=== PATIENT | male | born 1960 | race Caucasian/White ===

== ENCOUNTER → 2017-05-22 | Outpatient (CLI) | payer BC ==
[2014-03-09 05:56] VITALS: BP 145/87
[~2017-05-22] MED LIST: CYCL10TA2 PO; HYDR-2678 PO; HYDR-965 PO; IBUP200C PO; PROVENTIL HFA6.7 GM IH
--- NOTE | 2017-05-22 09:20 | KCIC ---
MRI Brain without contrast History: Left arm weakness in recent weeks Technique: Multiplanar, multisequential noncontrast MR imaging was performed of the brain. Contrast: None Comparison: None Findings: There is no evidence of an acute infarct or cytotoxic edema. The ventricles, sulci, and cisterns are within normal limits in size and configuration. There is no significant midline shift, mass effect, or focal abnormal extra-axial fluid collection. There is a tiny 4 mm focus of T2 and FLAIR hyperintense signal of the right frontal peripheral deep white matter, otherwise no significant focal signal abnormality including hemosiderin deposition of the brain parenchyma. There is preservation of the major intracranial flow-voids at the skull base. The mastoid air cells are aerated. The cerebellar tonsils are normal in location. There is no significant abnormality of the pineal gland or pituitary gland. There is patchy mild bilateral ethmoid air cell and very minimal frontal sinus mucosal thickening. There is right maxillary sinus mucous retention cyst 1.5 cm. There is preserved marrow signal of the clivus. Impression: 1. There is no evidence of recent infarct or intracranial mass effect. Other than a tiny focus of likely nonspecific gliosis right frontal white matter, there is no significant intracranial abnormality. Electronically signed by: Ken Cortes MD (05/22/2017 9:16 AM) [id number]
--- NOTE | 2017-05-22 11:23 | KCIC ---
SHOULDER 2+V LEFT History: Tendinitis of left rotator cuff Comparison: None. Findings: 3 views of the left shoulder submitted. There is no acute fracture or dislocation. There apparently is a small margin of calcification of the superior lateral margin of the glenoid. Impression: 1. No acute osseous abnormality is identified. Electronically signed by: Ken Cortes MD (05/22/2017 11:20 AM) [email or web address]
== END | disposition home or self-care (01) ==
LOC: KCIC 08:06
PROVIDERS: ATTEND Family Medicine
DX: M75.32 Calcific tendinitis of left shoulder (principal)
CPT/HCPCS: 70551; 73030

== ENCOUNTER → 2018-09-08 | Outpatient (CLI) | payer OTHER ==
[2014-03-09 05:56] VITALS: BP 145/87
[~2018-09-08] MED LIST changes: +ALBU2.5V8 IH; +HYDR-3165 PO; -HYDR-965 PO; -PROVENTIL HFA6.7 GM IH
--- NOTE | 2018-09-08 17:01 | KCIC ---
MR of the left shoulder Indication: Left shoulder pain, possible rotator cuff tear, pain for 14 months.. Comparison: None are available. Technique: Standard multiplanar sequences are obtained. Findings: Artifact: Mild motion degradation. Acromioclavicular joint: Mildly degenerative with mild undersurface mass effect. Rotator cuff: * Supraspinatus-infraspinatus tendon: Partial-thickness undersurface tear of the supraspinatus tendon, 30-50% deep. There is also a small bursal surface defect of the supraspinatus tendon. No full-thickness rupture or retraction. * Subscapularis tendon: Tendinosis with partial tear * Muscle bulk: Within normal limits * Subacromial subdeltoid bursa: Trace effusion. Fluid: Trace glenohumeral effusion. Glenohumeral cartilage: No acute defect or advanced DJD. Labrum: Mild superior labral signal. No definite attachment but detection could be limited by motion. Biceps tendon: Tendinosis with mild thickening and signal. Bones: No lesion or acute fracture. Soft tissue: No acute findings.. Impression: 1 Partial tearing of the supraspinatus tendon, and to a lesser extent subscapularis tendon. No full-thickness rupture or retraction. 2. Biceps tendinosis. Electronically signed by: Tien Berg MD (09/08/2018 4:57 PM) [email or web address]
--- NOTE | 2018-09-08 17:07 | KCIC ---
MR of the right shoulder Indication: Right shoulder pain for 14 months.. Comparison: None are available. Technique: Standard multiplanar sequences are obtained. Findings: Artifact: No significant image degradation. Acromioclavicular joint: Mildly degenerative. Mild undersurface mass effect. Rotator cuff: * Supraspinatus-infraspinatus tendon: Linear full-thickness tear across the supraspinatus tendon footplate attachment, measures about 15 mm AP diameter. No significant retraction. More generalized tendinosis. * Subscapularis tendon: Tendinosis with mild partial tear. * Muscle bulk: No advanced atrophy. * Subacromial subdeltoid bursa: Trace effusion. Fluid: No significant glenohumeral effusion. Glenohumeral cartilage: No acute defect or advanced DJD. Labrum: Mild signal within the superior labrum, compatible with degeneration or small degenerative tear. Biceps tendon: Tendinosis, with thickening and hyperintense signal. Bones: No lesion or acute fracture. Soft tissue: No acute findings.. Impression: 1. Rotator cuff tendinosis, small nonretracted full-thickness tear of the supraspinatus tendon attachment, mild partial subscapularis tendon tear. 2. Superior labral degeneration versus mild degenerative tear. 3. Biceps tendinosis. Electronically signed by: Tien Berg MD (09/08/2018 5:02 PM) [email or web address]
== END | disposition home or self-care (01) ==
LOC: KCIC MRI 14:23
PROVIDERS: ATTEND Orthopaedic Surgery Sports Medicine
DX: M75.121 Complete rotator cuff tear or rupture of right shoulder, not specified as traumatic (principal); M75.112 Incomplete rotator cuff tear or rupture of left shoulder, not specified as traumatic; M19.012 Primary osteoarthritis, left shoulder; M19.011 Primary osteoarthritis, right shoulder
CPT/HCPCS: 73221

== ENCOUNTER 2018-10-29 06:10 | Day surgery (SDC) | payer OTHER ==
[~2018-10-29] VITALS: Ht 177.8 cm; Wt 88.0 kg
[~2018-10-29 06:10] MED LIST changes: +IBUP200T44 PO; +LOSA-73 PO
[2018-10-29] MEDS ORDERED: IV RINGERS,LACTATED 1000ML 1,000 ML IV SCH (07:00)
[2018-10-29] MEDS ORDERED: ONDANSETRON PF 4 MG/2 ML VIAL. IV PRN (07:00)
[2018-10-29] MEDS ORDERED: MORPHINE SULFATE 4 MG/ML VIAL. IV PRN (07:00)
[2018-10-29] MEDS ORDERED: LIDOCAINE 1% PF 2 ML VIAL. ID PRN (07:00)
[2018-10-29] MEDS ORDERED: PROCHLORPERAZINE 10 MG/2 ML VIAL. IV PRN (07:00)
[2018-10-29] MEDS ORDERED: HYDROmorphone 2 MG/ML VIAL IV PRN (07:00)
[2018-10-29] MEDS ORDERED: fentaNYL PF VIAL 100 MCG/2 ML VIAL IV PRN (07:00)
[2018-10-29] MEDS ORDERED: MIDAZOLAM HCL/PF 2 MG/2 ML VIAL. ONE (07:05)
[2018-10-29] MEDS ORDERED: ROPIVacaine 0.5% PF 20 ML VIAL. ONE (07:05)
[2018-10-29] MEDS ORDERED: LIDOCAINE 2% PF 2ML VIAL. ONE (07:08)
[2018-10-29] MEDS ORDERED: LIDOCAINE 1% 20 ML VIAL. ONE (07:10)
[2018-10-29] MEDS ORDERED: EPINEPHrine VIAL 30 MG/30 ML VIAL ONE (07:10)
[2018-10-29] MEDS ORDERED: BUPIVACAINE MPF 0.5% 30 ML VIAL. ONE (07:10)
[2018-10-29] MEDS ORDERED: DEXAMETHASONE SOD PHOS 20 MG/5 ML VIAL. ONE (07:20)
[2018-10-29] MEDS ORDERED: PHENYLEPHRINE 10 MG/ML VIAL. ONE (07:20)
[2018-10-29] MEDS ORDERED: LIDOCAINE 2% PF Vial for OR 5 ML VIAL. ONE (07:20)
[2018-10-29] MEDS ORDERED: SEVOFLURANE > 120 MINUTES. IH ONE (07:20)
[2018-10-29] MEDS ORDERED: ONDANSETRON PF 4 MG/2 ML VIAL. ONE (07:20)
[2018-10-29] MEDS ORDERED: PROPOFOL 20 ML IV ONE (07:20)
--- NOTE | 2018-10-29 07:43 | DISCH ---
DISCHARGE INSTRUCTIONS Condition on Discharge Condition on Discharge: Stable Activity After Discharge Activity Instructions for Disc: Avoid exertion, Bedrest today, Progressive ambulation, Walk in house, Other, see below Other activity instructions: arm to remain in sling Bathing Instructions: Shower-keep dressing dry, No Tub Bath until see Lifting Instructions after Dis: No heavy lifting, No pulling or pushing, Do not lift >10 pounds Exercise Instruction after Dis: Walk 10 min, 3 x per day, Walk 15 min, 3 x per day, Walk 30 min, 3 x per week Driving Instructions after Dis: Do not drive Weight Bearing Status after Di: Non weight bearing Diet after Discharge Diet after Discharge: Regular Diet Texture: Regular Wound Incision Care Wound/Incision Care: Ice to area for comfort, Keep wound/cast CDI, Change dressing Wound Care Equipment: Dressings Contacting the [facility] after DC Call your doctor for: Concerns you may have Follow-Up Follow up with: David in 2 wks HECTOR PARRA II, MD Oct 29, 2018 07:43
[2018-10-29] MEDS ORDERED: KETOROLAC 30 MG/ML INJ FOR OR. INJ ONE (07:58)
[2018-10-29] MEDS ORDERED: fentaNYL PF VIAL 250 MCG/5 ML VIAL ONE (08:33)
[2018-10-29] MEDS ORDERED: MORPHINE SULFATE 4 MG/ML VIAL. ONE (09:03)
[2018-10-29] MEDS ORDERED: fentaNYL PF VIAL 100 MCG/2 ML VIAL ONE (09:03)
[2018-10-29] MEDS: fentaNYL PF VIAL 100 MCG/2 ML VIAL IV PRN ×2 (09:05→09:10)
--- NOTE | 2018-10-29 09:10 | PDOC4 ---
Operative Note Operative Note Date of procedure: 10/29/2018 Surgeon: Ivan Parra Tactical/Mobile Watch Officer: Kailyn rGove, certified registered dental assistant Preoperative diagnosis: Right shoulder rotator cuff tear Postoperative diagnosis: Same Procedure performed: arthroscopic right shoulder rotator cuff repair Anesthesia: Gen. plus regional nerve block Findings: #1 near complete rotator cuff tear involving supraspinatus and leading edge of the infraspinatus #2 remainder rotator cuff intact #3 grade 2-3 changes at glenoid and normal appearinghumeral head #4 superior labral degenerative fraying #5 remainder of the labrum intact #6 no loose bodies Blood loss: 10mL Components inserted: [employer] helacoil 2 for rotator cuff repair Reason for procedure: Patient is a very pleasant and gentleman who has had chronic shoulder pain 4 years. Clinical and radiographic examination, including MRI, were consistent with the preoperative diagnosis. He has tried physical therapy for several months as well as injections which only afforded him temporary relief. Because of his symptoms and dysfunction, we had a discussion of the risks, benefits, alternatives the above surgery and he wished to proceed. Description of procedure: Patient was greeted in the preoperative holding area where the correct extremity was verified and marked. They were taken to the preoperative holding area where the anesthesiology team placed a regional nerve block. The patient was then taken back to the operative suite and antibiotics were started as they were brought back. Once in the operative room, the patient was transferred gently supine to the operating room table after successful induction of a general anesthetic. After this, he was sat up in a beachchair position maintaining his C-spine in neutral position, large pad under his legs, he was secured to the bed. We then prepped and draped his right upper extremity and shoulder girdle in our usual sterile fashion, we conducted our standard preoperative timeout. I palpated and marked surface anatomy for my planned portal sites. I then used a spinal needle to localize a posterior superior portal and incised skin in accordance with this. After this, I introduced the blunt arthroscopic trocar into the glenohumeral joint followed by the camera. I used a spinal needle to localize an anterosuperior portal and incised skin in accordance with this. I then introducedmy arthroscopic probe and conducted my diagnostic arthroscopy with the above-noted findings. After this, I debrided some frayed tissue around the articular side of the rotator cuff as well as at thesuperior labrum. I next identified his rotator cuff tear and used a spinal needle to shuttle a PDS suture through the tendon tear to make sure I could visualize this portion from the subacromial space. After this , I repositioned the camera into the subacromial space and performed a bursectomy with combination of shaver and electrocautery device. I then identified the rotator cuff tear and was easily able to violate the substance of the tendon from the bursal side with the shaver. I debrided the pathologic tendon and prepared my footprint. I then placed my 2 helicoil anchors and shuttled limbs through in a simple configuration. I tied these down with arthroscopic knot-tying techniques. The tear was stable to probing and to gentle rotation of the arm. I then removed all loose bony debris and the excess arthroscopic fluid. I took my final pictures prior to this. After this, all the excess fluid and instrumentation was removed. The portals were closed with simple interrupted 3-0 nylon. Sterile dressing was applied followed by an abduction pillow sling. Patient tolerated surgery well. No complications. All counts correct 2 prior to wound closure. At the conclusion, he was laid supine and transferred gently supine to the recovery room cart and taken to the PACU in a stable and extubated condition. Postoperative plan is discharge him home, nonweightbearing for 6 weeks. Well get him started on physical therapy. He will follow up with me in 2 weeks, sooner should a problem arise. IVAN PARRA II, MD Oct 29, 2018 09:10
[2018-10-29] MEDS ORDERED: ONDA8TAB9 PO (09:11)
[2018-10-29] MEDS ORDERED: OXYC1TAB15 PO (09:12)
[2018-10-29] MEDS ORDERED: DOCU-109 PO (09:12)
[2018-10-29 09:50] VITALS: BP 150/78
== END 2018-10-29 09:50 | disposition home or self-care (01) ==
LOC: SURG 06:10
PROVIDERS: ATTEND Orthopaedic Surgery Sports Medicine
DX: M75.121 Complete rotator cuff tear or rupture of right shoulder, not specified as traumatic (principal); M24.111 Other articular cartilage disorders, right shoulder; J45.909 Unspecified asthma, uncomplicated; Z98.890 Other specified postprocedural states; Z82.49 Family history of ischemic heart disease and other diseases of the circulatory system; Z80.0 Family history of malignant neoplasm of digestive organs; Z87.891 Personal history of nicotine dependence; Z79.899 Other long term (current) drug therapy; Z91.041 Radiographic dye allergy status
CPT/HCPCS: 29827; A7015; C1782; J0171; J0696; J1100; J1885; J2001; J2250; J2405; J2704; J2795; J3010; J3490; J2270